=== PATIENT | female | born 1985 | race Caucasian/White ===

== ENCOUNTER 2022-11-03 10:44 | Outpatient (RCR) | payer OTHER, SELFPAY | END 2022-12-31 11:01 | disposition home or self-care (01) | LOC: PT 10:44 | PROVIDERS: PCP Physician Assistant; Visit Provider Physician Assistant | DX: O9A.213 Injury, poisoning and certain other consequences of external causes complicating pregnancy, third trimester (principal); S93.402D Sprain of unspecified ligament of left ankle, subsequent encounter; Z3A.32 32 weeks gestation of pregnancy; M25.672 Stiffness of left ankle, not elsewhere classified; M25.572 Pain in left ankle and joints of left foot | CPT/HCPCS: 97110; 97113; 97116; 97140 ==

== ENCOUNTER 2023-08-23 11:50 | Emergency (ER) | payer OTHER, SELFPAY ==
[2023-08-23 11:55] VITALS: BP 139/81; PULSE 85; RESP 18; TEMP 36.6; O2SAT 97; BMI 45.7
--- NOTE | 2023-08-23 12:10 | CT_ITS ---
The [address] [address] Patient Name: RICARDA UNGER MRN: [id number] date: 1985 Sex: F Assigned Patient Location: ER Current Patient Location: ER Accession/Order Number: [id number] Exam Date: 08/23/2023 12:47 Report Date: 08/23/2023 13:16 At the request of: KLEVER MARIE Procedure: CT head/brain wo con EXAMINATION: CT head/brain wo con, 08/23/2023 12:47 PM EDT HISTORY: Dizziness COMPARISON: None. TECHNIQUE: CT scan of the head was performed without IV contrast. CT dose reduction technique was used, including Automated Exposure Control. HISTORY: Dizziness FINDINGS: BRAIN: No edema, hemorrhage, mass, acute infarction, or inappropriate atrophy. CSF SPACES: No hydrocephalus, subarachnoid hemorrhage, or mass. Appropriate for age. SKULL: No fracture, mass, or other significant visible lesion. SINUSES: No significant mucosal thickening or fluid on the limited views. ORBITS: No appreciable abnormality on the limited views. OTHER: Motion artifact identified in the posterior fossa CT/CT head/brain wo con IMPRESSION: No acute intracranial abnormality Electronically authenticated by: YAZ BARTH Date: 08/23/2023 13:16
--- NOTE | 2023-08-23 12:10 | ED_ITS ---
HPI - Dizziness General Chief Complaint: Dizziness Stated Complaint: DIZZY Time Seen by Provider: 08/23/23 12:01 History of Present Illness HPI Narrative: 38-year-old female presents for intermittent dizziness that she has had for few weeks. It seems to be worse today and she felt like she was spinning and off- balance. No headache or localized weakness. No fever or vomiting. She is breast-feeding. Related Data Previous Rx's ?Medication ?Instructions ?Recorded meclizine 25 mg tablet 25 mg PO TID PRN dizziness #14 tabs 08/23/23 Allergies Allergy/AdvReac Type Severity Reaction Status Date / Time levofloxacin [From Levaquin] Allergy Severe Anaphylaxis Verified 08/23/23 12:32 Penicillins Allergy Severe Muscle Pain Verified 08/23/23 12:32 Review of Systems ROS Narrative A ten point review of systems is negative except as noted above. Exam Narrative Exam Narrative: Nurses note and vital signs reviewed and patient is not hypoxic. General: The patient appears well and in no apparent distress. Patient is resting comfortably on cart. Skin: Warm, dry, no pallor noted. There is no rash noted. Head: Normocephalic, atraumatic Eye: Normal conjunctiva, no drainage. PERRL Ears, Nose, Mouth, and Throat: oral mucosa is moist. Nares patent. Cardiovascular: Regular Rate and Rhythm Respiratory: Patient is in no distress, no accessory muscle use, lungs are clear to auscultation, no wheezing, rales or rhonchi Back: non-tender GI: no tenderness to palpation, no masses appreciated. No rebound, guarding, or rigidity noted. Musculoskeletal: The patient has no evidence of calf tenderness, no pitting edema, symmetrical pulses noted bilaterally Neurological: A&O, upper and lower extremity strength 5 out of 5 and symmetric, cranial nerves II through XII intact Psychiatric: Cooperative Constitutional Vital Signs, click to edit/add: Last Vital Signs Temp 97.9 F 08/23/23 11:55 Pulse 85 08/23/23 11:55 Resp 18 08/23/23 11:55 BP 139/81 08/23/23 11:55 Pulse Ox 97 08/23/23 11:55 O2 Del Method Room Air 08/23/23 11:55 Course Vital Signs Vital signs: Vital Signs Temperature 97.9 F 08/23/23 11:55 Pulse Rate 85 08/23/23 11:55 Respiratory Rate 18 08/23/23 11:55 Blood Pressure 139/81 08/23/23 11:55 Pulse Oximetry 97 08/23/23 11:55 Oxygen Delivery Method Room Air 08/23/23 11:55 Temperature 97.9 F 08/23/23 11:55 Pulse Rate 85 08/23/23 11:55 Respiratory Rate 18 08/23/23 11:55 Blood Pressure 139/81 08/23/23 11:55 Pulse Oximetry 97 08/23/23 11:55 Oxygen Delivery Method Room Air 08/23/23 11:55 MDM - Dizziness MDM Narrative Medical decision making narrative: Her workup including CT brain is negative. We discussed Antivert. She is breast-feeding. She has milk stored that she is going to utilize while she is on the Antivert for the next day or 2. Treatment diagnosis and follow-up were discussed with the patient. Differential Diagnosis Differential diagnosis: Likely benign paroxysmal positional vertigo, orthostatic hypotension and other (Dehydration) Lab Data Attestation: I reviewed the patient's lab results. Labs: Lab Results 08/23/23 08/23/23 Range/Units 12:26 13:35 WBC 8.3 (4.0-11.0) 10^3/uL RBC 4.37 (4.20-5.40) 10^6/uL Hgb 12.3 (12.0-16.0) g/dL Hct 38.4 (36.0-48.0) % MCV 87.9 (81.0-99.0) fL MCH 28.1 (26.7-34.0) pg MCHC 32.0 (29.9-35.2) g/dL RDW 12.8 (11.0-15.0) % Plt Count 235 (150-450) 10^3/uL MPV 11.0 (9.5-13.5) fL Neut % (Auto) 61.3 (43.0-75.0) % Lymph % (Auto) 27.9 (20.5-60.0) % [place] % (Auto) 7.3 (1.7-12.0) % Eos % (Auto) 2.4 (0.9-7.0) % Baso % (Auto) 0.7 (0.2-2.0) % Neut # (Auto) 5.1 (1.4-6.5) 10^3/uL Lymph # (Auto) 2.3 (1.2-3.8) 10^3/uL [place] # (Auto) 0.6 (0.3-0.8) 10^3/uL Eos # (Auto) 0.2 (0.0-0.7) 10^3/uL Baso # (Auto) 0.1 (0.0-0.1) 10^3/uL Abs Immat Gran (auto) 0.03 (0.00-0.03) 10^3/uL Imm/Tot Granulo (auto) 0.4 (0.0-0.5) % Sodium 133 L (136-145) mmol/L Potassium 5.0 (3.5-5.1) mmol/L Chloride 103 (98-107) mmol/L Carbon Dioxide 18.3 L (21.0-32.0) mmol/L Anion Gap 16.7 BUN 22.0 H (7.0-18.0) mg/dL Creatinine 0.57 (0.55-1.02) mg/dL Est GFR ( Amer) >60 (>=60) Est GFR (Non-Af Amer) >60 (>=60) BUN/Creatinine Ratio 38.6 Glucose 94 (74-106) mg/dL Calcium 8.8 (8.5-10.1) mg/dL Urine Color Lt. yellow (YELLOW) Urine Clarity Clear (CLEAR) Urine pH 6.0 (5.0-9.0) Ur Specific [place] 1.010 (1.005-1.025) Urine Protein Negative (NEG/TRACE) mg/dL Urine Glucose (UA) Negative (NEGATIVE) mg/dL Urine Ketones Negative (NEGATIVE) mg/dL Urine Occult Blood Large A (NEGATIVE) Urine Nitrite Negative (NEGATIVE) Urine Bilirubin Negative (NEGATIVE) Urine Urobilinogen 0.2 (0.2-1.0) EU/dL Ur Leukocyte Esterase Negative (NEGATIVE) Imaging Data CT scan - head: Radiologist's impression: ITS Impressions Head CT 08/23/23 12:10 IMPRESSION: No acute intracranial abnormality Electronically authenticated by: YAZ BARTH Date: 08/23/2023 13:16 ECG Data Attestation: I personally reviewed and interpreted this ECG as follows: (EKG on my interpretation shows normal sinus rhythm with a rate of 71.) Discharge Plan Discharge Stand Alone Forms: Portal Instructions Chief Complaint: Dizziness Clinical Impression: Vertigo Patient Disposition: Home, Self-Care Time of Disposition Decision: 14:04 Condition: Good Mode of Transportation: Private Vehicle Prescriptions / Home Meds: New meclizine 25 mg tablet 25 mg PO TID PRN (Reason: dizziness) Qty: 14 0RF Print Language: Somali Instructions: Vertigo (ED) Additional Instructions: Do not take Antivert while breast-feeding Referrals: Mary Vogt [Primary Care Provider] - 1 week
--- NOTE | 2023-08-23 12:10 | ECG_ITS ---
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
[2023-08-23 12:33] LABS: Basophils Absolute Auto 0.1 10^3/uL (0.0-0.1); Basophils Percent Auto 0.7 % (0.2-2.0); Eosinophils Absolute Auto 0.2 10^3/uL (0.0-0.7); Eosinophils Percent Auto 2.4 % (0.9-7.0); Hematocrit 38.4 % (36.0-48.0); Hemoglobin 12.3 g/dL (12.0-16.0); Immature Granulocytes Abs Auto 0.03 10^3/uL (0.00-0.03); Immature Granulocytes Pct Auto 0.4 % (0.0-0.5); Lymphocytes Absolute Auto 2.3 10^3/uL (1.2-3.8); Lymphocytes Percent Auto 27.9 % (20.5-60.0); Mean Corpuscular Hemoglobin 28.1 pg (26.7-34.0); Mean Corpuscular Volume 87.9 fL (81.0-99.0); Monocytes Absolute Auto 0.6 10^3/uL (0.3-0.8); Monocytes Percent Auto 7.3 % (1.7-12.0); Neutrophils Absolute Auto 5.1 10^3/uL (1.4-6.5); Neutrophils Percent Auto 61.3 % (43.0-75.0); Platelet Count 235 10^3/uL (150-450); Red Blood Count 4.37 10^6/uL (4.20-5.40); Red Cell Distribution Width 12.8 % (11.0-15.0); White Blood Count 8.3 10^3/uL (4.0-11.0)
[2023-08-23 12:41] LABS: Anion Gap 16.7; BUN Creatinine Ratio 38.6; Calcium 8.8 mg/dL (8.5-10.1); Carbon Dioxide 18.3 mmol/L (21.0-32.0); Chloride 103 mmol/L (98-107); Estimated GFR (African America >60 (>=60); Estimated GFR (Non-African Ame >60 (>=60); Glucose 94 mg/dL (74-106); Sodium 133 mmol/L (136-145)
[2023-08-23 13:53] LABS: Bilirubin Urine NEGATIVE (NEGATIVE); Blood Urine LARGE (NEGATIVE); Clarity Urine CLEAR (CLEAR); Color Urine LT. YELLOW (YELLOW); Glucose Urine UA NEGATIVE (NEGATIVE); Ketones Urine NEGATIVE (NEGATIVE); Leukocyte Esterase Urine NEGATIVE (NEGATIVE); Nitrite Urine NEGATIVE (NEGATIVE); Protein Urine NEGATIVE (NEG/TRACE); Urobilinogen Urine 0.2 EU/dL (0.2-1.0)
[2023-08-23 14:16] LABS: Bacteria Urine NONE SEEN #/HPF (NONE SEEN); Cast Seen? NONE SEEN #/LPF (NONE SEEN); Crystals Seen? None Seen #/HPF (None Seen); Mucus Urine NONE SEEN (NONE SEEN); Squamous Epithelial Cell Urine NONE SEEN #/LPF (NONE/RARE); WBC Urine NONE SEEN #/HPF (NONE SEEN)
== END 2023-08-23 14:21 | disposition home or self-care (01) ==
PROVIDERS: Emergency Provider Emergency Medicine; PCP Physician Assistant
DX: R42 Dizziness and giddiness (principal)
CPT/HCPCS: 36415; 70450; 80048; 81001; 85025; 93005; 99285